=== PATIENT | male | born 1935 | race Caucasian/White ===

== ENCOUNTER 2019-01-09 18:55 | Emergency (ER) | payer MEDICARE ==
[2019-01-09 19:15] VITALS: BP 123/58
[2019-01-09] MEDS ORDERED: Sulfamethox/Trimethoprim DS 800/160* TAB PO ONE (19:48)
[2019-01-09] MEDS ORDERED: cefTRIAXone VIAL(*) 1,000 MG VIAL IM ONE (19:48)
[2019-01-09] MEDS ORDERED: Lidocaine 1% MPF* 2 ML VIAL INJ ONE (19:48)
--- NOTE | 2019-01-09 19:55 | UC ---
Ear Complaint HPI - HPI Summary HPI Summary: patient thinks he had a bug bite to the side of the face. the past 2 days increased redness and swelling of the right side of the face and ear. pain is external. - History of Current Complaint Chief Complaint: SHAHANAkin Stated Complaint: RT EAR PAIN/FACIAL SWELLING Time Seen by Provider: 01/09/19 19:19 Hx Obtained From: Patient Onset/Duration: Sudden Onset, Lasting Days Severity Initially: Mild Severity Currently: Mild Pain Intensity: 0 Associated Signs/Symptoms: Positive: Swelling @ - Allergies/Home Medications Allergies/Adverse Reactions: Allergies Allergy/AdvReac Type Severity Reaction Status Date / Time No Known Allergies Allergy Verified 01/09/19 19:15 Home Medications: Home Medications Aspirin 81 mg CHEW TAB* [Aspirin Low Dose TAB*] 81 mg PO DAILY 01/09/19 [ History Confirmed 01/09/19] Atorvastatin* [Lipitor*] 40 mg PO 1700 01/09/19 [History Confirmed 01/09/19] Brimonid/Timolol 0.2/0.5%(NF) [Combigan 0.2/0.5% (NF)] 1 drop RIGHT EYE DAILY [History Confirmed 01/09/19] Clopidogrel TAB* [Plavix TAB*] 75 mg PO DAILY 01/09/19 [History Confirmed ] Dorzolamide/Timolol/Pf [Dorzolamide-Timolol 2%-0.5%] 1 each OP DAILY 01/09/19 [ History Confirmed 01/09/19] Isosorbide Mononitrate ER TAB* [Imdur ER TAB*] 60 mg PO DAILY 01/09/19 [History Confirmed 01/09/19] Melatonin 5 mg PO DAILY 01/09/19 [History Confirmed 01/09/19] Metoprolol Little/Hydrochlorothiaz [Metoprolol ER-Hctz 25-12.5 mg] 1 each PO DAILY 01/09/19 [History Confirmed 01/09/19] Multivitamin [Lsx-Jmgamx-Xatyt] 1 each PO DAILY 01/09/19 [History Confirmed ] Netarsudil Mesylate [Rhopressa] 2.5 ml OP DAILY 01/09/19 [History Confirmed ] Tamsulosin CAP* [Flomax CAP*] 0.4 mg PO BEDTIME 01/09/19 [History Confirmed ] Torsemide TAB* [Demadex*] 5 mg PO DAILY 01/09/19 [History Confirmed 01/09/19] PMH/Surg Hx/FS Hx/Imm Hx Previously Healthy: Yes - Surgical History Surgical History: Yes Surgery Procedure, Year, and Place: Cardiac stents - Family History Known Family History: Positive: Hypertension - Social History Alcohol Use: None Substance Use Type: None Smoking Status (MU): Never Smoked Tobacco Review of Systems All Other Systems Reviewed And Are Negative: Yes Skin: Positive: Other - erythema of the face ENT: Positive: Ear Ache Is Patient Immunocompromised?: No Physical Exam Triage Information Reviewed: Yes Appearance: Well-Appearing, Well-Nourished, Pain Distress Vital Signs: Initial Vital Signs Temp 99.8 F 01/09/19 19:09 Pulse 74 01/09/19 19:09 Resp 16 01/09/19 19:09 BP 123/58 01/09/19 19:09 Pulse Ox 97 01/09/19 19:09 Vital Signs Reviewed: Yes Eye Exam: Normal ENT: Positive: TMs normal, Other - external ear is swollen and red, erytema extends to the skin toward to face. small red bug bite noted in front of the right ear, Dental Exam: Normal Neck exam: Normal Neck: Positive: Enlarged Nodes @ - behind the right ear Respiratory Exam: Normal Respiratory: Positive: Chest non-tender, Lungs clear, Normal breath sounds Cardiovascular Exam: Normal Cardiovascular: Positive: RRR Bowel Sounds: Positive: Present Musculoskeletal Exam: Normal Neurological Exam: Normal Psychological Exam: Normal Skin Exam: Normal Ear Complaint Course/Dx - Course Course Of Treatment: hx obtained, exam performed ,meds reviewed, given IV rocephin and started on Bactrim advised if not improving in the next 24 hours to follow up in ER - Differential Dx/Diagnosis Differential Diagnosis/HQI/PQRI: Cellulitis, Otitis Externa Provider Diagnosis: Perichondritis and chondritis of right pinna, Cellulitis of face Discharge - Sign-Out/Discharge Documenting (check all that apply): Patient Departure All imaging exams completed and their final reports reviewed: No Studies - Discharge Plan Condition: Stable Disposition: HOME Prescriptions: Sulfamethox/Trimethoprim DS* [Bactrim DS 800/160 TAB*] 1 tab PO BID #14 tab Patient Education Materials: Cellulitis (DC) Referrals: No Primary Care Phys,NOPCP [Primary Care Provider] - Additional Instructions: 1. take the medication as prescribed 2. If not improving in 24 hours please follow up in ER. 3. warm compresses to the side of the face to promote blood flow to the ear. - Billing Disposition and Condition Condition: STABLE Disposition: Home - Attestation Statements Provider Attestation: Per institutional requirements, I have reviewed the chart, however, I was not consulted specifically or made aware of this patient by the midlevel provider. I did not personally evaluate, interact with , or disposition this patient.
== END 2019-01-09 20:27 | disposition home or self-care (01) ==
LOC: UCCORT 18:55
DX: H61.001 Unspecified perichondritis of right external ear (principal); M94.8X8 Other specified disorders of cartilage, other site; L03.211 Cellulitis of face
CPT/HCPCS: 96372; 99212; A9270-GY; G0463; J0696